=== PATIENT | female | born 1995 | race Caucasian/White ===

== ENCOUNTER 2019-01-14 16:31 | Outpatient (CLI) | payer OTHER ==
--- NOTE | 2019-01-14 16:53 | RAD ---
Scoliosis study INDICATION: Concern for scoliosis COMPARISON: None Images: 2 FINDINGS: 2 frontal projections of the thoracolumbar spine demonstrate 12 rib-bearing thoracic verteb ra. There are 5 lumbar-type vertebra. There is 13 degrees of levoscoliosis centered at T10. There is 15 degrees of dextroscoliosis centered at L1-L2. No congenital vertebral anomaly is demonstrated. The visualized lungs are clear. The visualized bowel gas pattern is within normal limits. IMPRESSION: Mild thoracolumbar scoliosis.
== END 2019-01-14 16:32 | disposition home or self-care (01) ==
LOC: BICRAD 16:31
PROVIDERS: ATTEND Family Medicine
DX: M89.8X1 Other specified disorders of bone, shoulder (principal); M41.9 Scoliosis, unspecified
CPT/HCPCS: 72081